=== PATIENT | female | born 1975 | race Caucasian/White ===

== ENCOUNTER 2018-11-25 10:25 | Day surgery (SDC) | payer SELFPAY ==
[2018-11-23 17:02] VITALS: BMI 23.5
[2018-11-25] MEDS ORDERED: fentaNYL CITRATE 250 MCG/5 ML VIAL ONE (10:49)
[2018-11-25] MEDS ORDERED: PROPOFOL 20 ML ONE (10:49)
[2018-11-25] MEDS ORDERED: LIDOCAINE HCL/PF 2% SDV 5ML VIAL ONE (10:50)
[2018-11-25] MEDS ORDERED: DEXAMETHASONE SOD PHOSPHATE 4 MG/1 ML VIAL ONE (10:50)
[2018-11-25] MEDS ORDERED: ONDANSETRON 4 MG/2 ML VIAL ONE (10:50)
[2018-11-25] MEDS ORDERED: ROCURONIUM BROMIDE 50 MG/5 ML VIAL ONE ×2 (10:50→12:58)
[2018-11-25] MEDS ORDERED: MIDAZOLAM HCL 2 MG/2 ML SINGLE DOSE VIAL ONE (10:50)
[2018-11-25] MEDS ORDERED: BUPIVACAINE HCL/PF 0.5% (5MG/ML) 10 ML VIAL ONE (11:05)
[2018-11-25] MEDS ORDERED: oxyCODONE HCL 5 MG TABLET PO PRN ×2 (11:21)
[2018-11-25] MEDS ORDERED: ONDANSETRON 4 MG/2 ML VIAL IVPUSH PRN ×2 (11:21→15:16)
[2018-11-25] MEDS ORDERED: LACTATED RINGERS SOLUTION 1,000 ML IV SCH ×2 (11:30→15:30)
[2018-11-25] MEDS ORDERED: BACITRACIN 50,000 UNITS VIAL TP ONE (12:40)
[2018-11-25] MEDS ORDERED: VANCOMYCIN 1,000 MG VIAL (RESTRICTED TO ID ONLY) IVPB ONE (12:40)
[2018-11-25] MEDS ORDERED: GENTAMICIN 80MG PREMIX BAG IVPB ONE (12:40)
[2018-11-25] MEDS ORDERED: ceFAZolin SODIUM 1 GM VIAL IVPB ONE (12:40)
[2018-11-25] MEDS ORDERED: BUPIVACAINE HCL/PF (5 MG/ML) 30 ML VIAL IJ ONE ×2 (12:44)
[2018-11-25] MEDS ORDERED: LIDOCAINE 1%/EPI 1:100000 (20 ML MULTI DOSE VIAL) IJ ONE ×2 (12:44)
[2018-11-25] MEDS ORDERED: GENTAMICIN SO4 80 MG/2 ML VIAL ONE (13:32)
[2018-11-25] MEDS ORDERED: ceFAZolin SODIUM 1 GM VIAL ONE (13:33)
[2018-11-25] MEDS ORDERED: BENZOIN TINCTURE SWABSTICK TP ONE (14:31)
[2018-11-25] MEDS ORDERED: GLYCOPYRROLATE 0.2 MG/1 ML VIAL ONE (14:34)
[2018-11-25] MEDS ORDERED: NEOSTIGMINE METHYLSULFATE 0.5 MG/1 ML - 10 ML MDV ONE (14:34)
[2018-11-25] MEDS ORDERED: ACETAMINOPHEN 325 MG TABLET (FP) PO PRN (15:16)
[2018-11-25 16:45] VITALS: TEMP 98.2
[2018-11-25 17:53] VITALS: BP 110/58; PULSE 61
== END 2018-11-25 18:04 | disposition home or self-care (01) ==
LOC: JASU-SURG 10:25
PROVIDERS: ATTEND Plastic Surgery
CPT/HCPCS: 84703; 94760